=== PATIENT | female | born 1980 | race African-American/Black ===

== ENCOUNTER 2024-01-14 08:52 | Emergency (ER) | payer OTHER ==
[~2024-01-14] VITALS: Ht 170.2 cm; Wt 64.0 kg
[2024-01-14 08:56] VITALS: O2SAT 96
[2024-01-14 09:21] LABS: BASOPHILS % 1.8 % (0.0-2.0); DIFFERENTIAL COMMENT 0; HEMATOCRIT. 34.4 % (36.0-48.0); HEMOGLOBIN. 11.4 g/dL (12.0-16.0); LYMPHOCYTES % 24.8 % (20.0-50.0); MEAN CORPUSCULAR HEMOGLOBIN 35.7 pg (28.0-32.0); MEAN CORPUSCULAR HGB CONC 33.2 g/dL (31.0-37.0); MEAN CORPUSCULAR VOLUME 107.6 fL (81.0-99.0); MEAN PLATELET VOLUME 7.2 fl (7.4-10.4); MONOCYTES % 6.3 % (2.0-8.0); NEUTROPHILS % 66.1 % (40.0-76.0); PLATELET 365 x1000/uL (130-400); RED CELL DISTRIBUTION WIDTH 17.4 % (11.6-14.6); WHITE BLOOD COUNT 6.4 x1000/uL (4.5-11.0)
[2024-01-14 09:37] LABS: ALANINE AMINOTRANSFERASE 23 IU/L (10-49); ALBUMIN 3.6 g/dL (3.2-4.8); ASPARTATE AMINOTRANSFERASE 66 IU/L (<34); BILIRUBIN TOTAL 0.3 mg/dL (0.1-1.0); CALCIUM 8.4 mg/dL (8.7-10.4); CARBON DIOXIDE 23 mEq/L (21-32); CHLORIDE 106 mEq/L (98-107); CREATININE 0.5 mg/dL (0.6-1.0); GLUCOSE 75 mg/dL (70-105); POTASSIUM 3.3 mEq/L (3.5-5.1); PROTEIN TOTAL 7.6 g/dL (6.0-8.3); SODIUM 140 mEq/L (136-145); TROPONIN I HIGH SENSITIVITY < 4 ng/L (3.0-34); UREA NITROGEN BLOOD 5 mg/dL (9-23)
[2024-01-14 09:53] LABS: HCG SCREEN NEGATIVE
[2024-01-14 10:50] VITALS: BP 134/96; PULSE 101; RESP 16; TEMP 98.3
[2024-01-15] MEDS ORDERED: MAG355OR21 MT (04:53)
[2024-01-15] MEDS ORDERED: ONDA4TAB50 MT (04:53)
== END 2024-01-14 11:21 | disposition left against medical advice (07) ==
LOC: ER 08:52 → EDBEDREQ 10:40 → EDBEDREQTM 10:40 → ER 11:21
DX: R07.89 Other chest pain (principal); Z98.890 Other specified postprocedural states
CPT/HCPCS: 80053; 84703; 83880; 85025; 84484; 36415; 71045; 93005; 99285; Z7610

== ENCOUNTER 2024-01-14 22:34 | Emergency (ER) | payer OTHER ==
[~2024-01-14] VITALS: Ht 160 cm; Wt 59.0 kg
[2024-01-14 22:45] VITALS: BP 158/106; PULSE 110; RESP 16; TEMP 98.9; O2SAT 100
[2024-01-14 23:17] LABS: BASOPHILS % 1.5 % (0.0-2.0); DIFFERENTIAL COMMENT 0; EOSINOPHILS % 1.3 % (0.0-5.0); HEMATOCRIT. 32.7 % (36.0-48.0); HEMOGLOBIN. 11.2 g/dL (12.0-16.0); LYMPHOCYTES % 34.3 % (20.0-50.0); MEAN CORPUSCULAR HEMOGLOBIN 36.7 pg (28.0-32.0); MEAN CORPUSCULAR HGB CONC 34.3 g/dL (31.0-37.0); MEAN PLATELET VOLUME 7.4 fl (7.4-10.4); MONOCYTES % 8.1 % (2.0-8.0); NEUTROPHILS % 54.8 % (40.0-76.0); PLATELET 374 x1000/uL (130-400); RED BLOOD CELL COUNT 3.06 mill/uL (4.2-5.4); RED CELL DISTRIBUTION WIDTH 17.5 % (11.6-14.6); WHITE BLOOD COUNT 6.3 x1000/uL (4.5-11.0)
[2024-01-14 23:27] LABS: HCG SCREEN NEGATIVE
[2024-01-14 23:40] LABS: ALANINE AMINOTRANSFERASE 25 IU/L (10-49); ALBUMIN 3.6 g/dL (3.2-4.8); ASPARTATE AMINOTRANSFERASE 75 IU/L (<34); BILIRUBIN TOTAL 0.3 mg/dL (0.1-1.0); CALCIUM 8.5 mg/dL (8.7-10.4); CARBON DIOXIDE 26 mEq/L (21-32); CHLORIDE 104 mEq/L (98-107); CREATININE 0.5 mg/dL (0.6-1.0); ETHANOL BLOOD 309 mg/dL (<10); GLUCOSE 77 mg/dL (70-105); POTASSIUM 3.4 mEq/L (3.5-5.1); PROTEIN TOTAL 7.6 g/dL (6.0-8.3); SODIUM 140 mEq/L (136-145); TROPONIN I HIGH SENSITIVITY < 4 ng/L (3.0-34); UREA NITROGEN BLOOD < 5 mg/dL (9-23)
[2024-01-15] MEDS ORDERED: MAGNESIUM/ALUMINUM HYDROXIDE/SIMETHICONE 30ML UDC PO NR (01:30)
[2024-01-15 02:19] LABS: TROPONIN I HIGH SENSITIVITY < 4 ng/L (3.0-34)
[2024-01-15] MEDS ORDERED: ONDA4TAB50 MT (04:53)
[2024-01-15] MEDS ORDERED: MAG355OR21 MT (04:53)
== END 2024-01-15 06:19 | disposition home or self-care (01) ==
LOC: ER 22:42
DX: F10.129 Alcohol abuse with intoxication, unspecified (principal); R07.89 Other chest pain; Y90.8 Blood alcohol level of 240 mg/100 ml or more
CPT/HCPCS: 36415; 71045; 80053; 80320; 83880; 84484; 84703; 85025; 93005; 99285; G0480